=== PATIENT | female | born 1995 | race Caucasian/White ===

== ENCOUNTER 2025-03-13 05:36 | Inpatient (IN) ==
--- NOTE | 2025-03-05 08:50 | Anesthesiology Consultation ---
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 No known infectious disease contacts in past 10 days or current infectious disease symptoms. No recent travel outside the country. Patient seen by cardiology 12/19/2024 = patient seen in the cardiology clinic in the setting of incomplete cardiac views on anatomy scan. Today has been uncomplicated. She was diagnosed with gestational diabetes and takes insulin. Today's echo reviewed.Overall normal. No evidence of major congenital heart disease, myocardial dysfunction, rhythm disturbances or significant pericardial effusion. We did identify a trivial degree of physiologic fluid in the pericardial space which was not circumferential, not associated with hemodynamic changes and if infant remains well throughout the rest the can be considered a normal variant. No need to follow her based on this finding alone. I see no reason for her not to deliver at [facility] as she is planning. Pediatric cardiology team can be contacted anytime should there be an acute concern about the 's cardiovascular status. No need to follow her in cardiology clinic at this time nor do I see any need for empiric imaging or pediatric cardiology involvement for the fetus. Would recommend care with nursery and well-child check per AAP guidelines only. Recommendationsrecommend no further cardiology follow-up at this time. No changes to his or gestation plan. No empiric imaging of is recommended. echo 12/19/2024 = normal LV/RV dimensions and systolic function. Normal LA/RA dimensions. Normal valve morphology/function. Normal cardiovascular shunts, heart rate and rhythm. No vascular abnormalities. Trivial pericardial effusion versus physiologic fluid. Remainder of the study as above with noted limitations. echo cannot predict whether shunts will close spontaneously after . echo cannot rule out minor valve abnormalities, minor septation defects, partial anomalous pulmonary venous return, coarctation of the aorta, coronary artery abnormalities, other minor vascular abnormalities. History Surgery Operation Date: 03/13/25 07:30 Proposed Procedures p Section (Delivery of Baby Through Abdominal Incision) - Regina Dumas MD, FACOG Height/Weight Height: 5 ft 10 in Weight: 136.531 kg Allergies Allergy/AdvReac Type Severity Reaction Status Date / Time seasonal allergies Allergy Mild Congested Uncoded 03/05/25 08:00 Medications Home Medications Medication Instructions Recorded Confirmed Last Taken prenat.vits,bhakti,nhd-sqfd-anxzm 1 tab PO DAILY 08/17/24 03/05/25 Unknown nifedipine 30 mg tablet,extended 30 mg PO QAM 09/18/24 03/05/25 Unknown release pen needle, diabetic 32 gauge x #100 ea 11/17/24 03/02/25 Unknown " aspirin 81 mg tablet,delayed 81 mg PO QAM 03/05/25 03/05/25 Unknown release famotidine 20 mg tablet (Pepcid) 20 mg PO HS 03/05/25 03/05/25 Unknown insulin NPH isoph U-100 human 100 22 unit subcut .at bed time 03/05/25 03/05/25 Unknown unit/mL (3 mL) subcutaneous pen (Novolin N FlexPen) Past Medical History Medical History GERD (gastroesophageal reflux disease) " related" Gestational diabetes insulin History of anxiety Hx of migraines Hypertension Sinus arrhythmia no cards Past Family History Family History Family/Other Breast cancer Family/Other Breast cancer Mother Diabetes Uterine cancer Father Heart disease Other No family history of adverse response to anesthesia Denies family history of Ovarian cancer Prostate cancer Myocardial infarction Colorectal cancer Past Surgical History Surgical History H/O oral surgery Social History Smoking Status: Former smoker Smoking cigarettes per day: quit 2-3 years ago Do You Dip or Chew Tobacco: No Hx Alcohol Use: No Alcohol type: beer and wine Hx Substance Use: No substance use type: does not use
--- NOTE | 2025-03-12 20:26 | History & Physical Report ---
Date of Service March 12, 2025 Assessment & Plan (1) 38 weeks gestation of : (2) Insulin controlled gestational diabetes mellitus (GDM) during : (3) Chronic hypertension affecting : (4) Obesity affecting : (5) LGA (large for gestational age) fetus affecting management of mother: Plan Will admit pt in am for planned procedure. Advised to only use 1/2 bedtime nph today. Remaining instructions reviewed and ERAS protocol. Consent reviewed and signed. Aware that planning delivery based on EFW, can have a 15% error rate, either for bigger or smaller baby. She still desires to proceed. Ok to hold am nifedipine. Questions answered to best of my ability and to the patient's apparent satisfaction. History of Present Illness Chief Complaint: planned c/s Primary Care Provider: FOSTER Britton 29yo at 38+wks ega will present to LD for planned c/s on 03/13/25, for LGA fetus, desires primary c/s. Patient denies rom, vb. +FM. No ctx. Her is complicated by chtn and gdm requiring insulin. On her growth u/s 03/02/25, efw was >98%, ac >98% and we discussed efw at this time and extrapolating grams even if opt to do 38wk induction was >4500gm. This does come with a +/- 15% error margin. With dx of gdm on insulin and chtn offered induction at 38wks vs primary c/s. She elected latter and is ready to proceed with planned c/s tomorrow am. She is sure she wants to proceed. PNC c/b 1. GDM on insulin 2. CHTN 3. LGA on latest u/s PNL rh pos, ri, gbs neg OBH: g1 GYNH: Nl paps, no stds Allergies Allergy/AdvReac Type Severity Reaction Status Date / Time seasonal allergies Allergy Mild Congested Uncoded 03/12/25 10:07 Home Medications Medication Instructions Recorded Confirmed Type prenat.vits,bhakti,quk-cice-habgj 1 tab PO DAILY 08/17/24 03/12/25 History nifedipine 30 mg tablet,extended 30 mg PO QAM 09/18/24 03/12/25 History release pen needle, diabetic 32 gauge x #100 ea 11/17/24 03/12/25 Rx " aspirin 81 mg tablet,delayed 81 mg PO QAM 03/05/25 03/12/25 History release famotidine 20 mg tablet (Pepcid) 20 mg PO HS 03/05/25 03/12/25 History insulin NPH isoph U-100 human 100 22 unit subcut .at bed time 03/05/25 03/12/25 History unit/mL (3 mL) subcutaneous pen (Novolin N FlexPen) Patient History Medical History GERD (gastroesophageal reflux disease) " related" Gestational diabetes insulin History of anxiety Hx of migraines Hypertension Sinus arrhythmia no cards Surgical History H/O oral surgery Family History Family/Other Breast cancer Family/Other Breast cancer Mother Diabetes Uterine cancer Father Heart disease Other No family history of adverse response to anesthesia Denies family history of Ovarian cancer Prostate cancer Myocardial infarction Colorectal cancer Social History (Updated 08/17/24 @ 10:57 by Licha Wing) Smoking Status: Former smoker Tobacco Type: E-cigarettes / Vaping Cigarettes Per Day: quit 2-3 years ago; Second Hand Exposure: No; Do You Dip or Chew Tobacco: No; Hx Alcohol Use: No Hx Substance Use: No Preferred Language: Uzbek [employer] Required: No Beliefs That Will Affect Care: None marital status: Single marital status details: Tee (32) [phone] Current Living Situation: Significant Other Current Living Situation Comment: lives with fob, 3 dogs. 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 Safe at Home: Yes Assistive Devices: Contacts and Glasses Review of Systems as per Subjective / HPI Physical Exam Constitutional: WD/WN, vitals as above Respiratory: normal respiratory effort, lungs clear to auscultation Cardiovascular: Rate/Rhythm: regular rate and regular rhythm Gastrointestinal (Abdomen): soft gravid nt obese Musculoskeletal: tr edema nontender calves Neurologic: grossly normal Psychiatric: A+Ox3, euthymic affect Genitourinary: nst reactive Coding Level of Care Code None Diagnoses 38 weeks gestation of Z3A.38 Insulin controlled gestational diabetes mellitus (GDM) during O24.414 Chronic hypertension affecting O10.919 Obesity affecting O99.210 LGA (large for gestational age) fetus affecting management of mother O36.60X0
[2025-03-13] MEDS ORDERED: LACTATED RINGER'S 1,000 ML IV SCH ×2 (05:45→06:45)
[2025-03-13] MEDS: LACTATED RINGER'S 1,000 ML IV SCH ×2 (05:55→13:40)
[2025-03-13] MEDS ORDERED: ceFAZolin 3000MG 3,000 MG/72.5 ML BAG IV SCH (06:00)
[2025-03-13 06:02] LABS: Hematocrit (blood only) 35.1 % (37.0-47.0); Hemoglobin 11.6 g/dl (12.0-16.0); Immature Granulocytes # (auto) 0.10 K/uL (0.01-0.20); Immature Granulocytes % (auto) 1.1 %; Mean Corpuscular Hemoglobin 29.0 pg (25.0-34.0); Mean Corpuscular Volume 87.8 fL (80.0-100.0); Platelet Count 251 K/uL (130-400); RDW Standard Deviation 44.6 fL (36.4-46.3); Red Blood Count 4.00 M/uL (4.20-5.40); White Blood Count 9.17 K/ul (4.8-10.8)
[2025-03-13] MEDS: ACETAMINOPHEN 500 MG TAB PO SCH (06:05)
[2025-03-13] MEDS ORDERED: SODIUM CHLORIDE 0.9% 100 ML IV PRN (06:13)
[2025-03-13] MEDS ORDERED: MoRPHine SULFATE PF 1 MG/ML 10 ML AMP/VIAL ONE (06:49)
[2025-03-13] MEDS ORDERED: METOCLOPRAMIDE HCL INJ 5 MG/ML 2 ML VIAL ONE (06:51)
[2025-03-13] MEDS ORDERED: DEXAMETHASONE SOD INJ 4 MG/ML VIAL ONE (06:51)
[2025-03-13] MEDS ORDERED: OXYTOCIN 10 UNITS/ML VIAL ONE (06:51)
[2025-03-13] MEDS ORDERED: SODIUM CHLORIDE 0.9% PF INJ 10 ML VIAL ONE (06:52)
[2025-03-13] MEDS ORDERED: ONDANSETRON INJ 2 MG/ML 2 ML VIAL ONE (06:52)
[2025-03-13] MEDS ORDERED: PHENYLEPHRINE HCL 10 MG/ML VIAL ONE (06:52)
[2025-03-13] MEDS: CITRIC ACID/SODIUM CITRATE 15 ML UDC PO SCH (07:22)
[2025-03-13] MEDS: ceFAZolin 3,000 MG/72.5 ML BAG IV SCH (07:24)
--- NOTE | 2025-03-13 07:24 | History & Physical Bridge Note ---
Date of Service March 13, 2025 History & Physical Bridge Note I have examined the patient, reviewed the History & Physical and in the interval since the performance of the History & Physical I have noted the following changes of clinical significance: no changes noted
[2025-03-13] MEDS ORDERED: ONDANSETRON INJ 2 MG/ML 2 ML VIAL IV PRN (07:49)
[2025-03-13] MEDS ORDERED: NALOXONE HCL 0.08 MG in SYRINGE 1.8 ML IV PRN (07:49)
[2025-03-13] MEDS ORDERED: NALOXONE HCL 0.4 MG/1 ML VIAL/CARP IV PRN (07:49)
[2025-03-13] MEDS ORDERED: PROMETHAZINE 6.25 MG/50.25 ML BAG IV PRN (07:49)
[2025-03-13] MEDS ORDERED: NALBUPHINE HCL INJ 10 MG/ML AMP IV PRN (07:49)
[2025-03-13] MEDS ORDERED: NALOXONE HCL 1 MG in SODIUM CHLORIDE 0.9% 1,000 ML IV PRN (07:49)
[2025-03-13] MEDS ORDERED: LACTATED RINGER'S 500 ML IV PRN (07:49)
[2025-03-13] MEDS ORDERED: MoRPHine SULFATE 2 MG/ML CARP IV PRN (07:49)
[2025-03-13] MEDS ORDERED: diphenhydrAMINE 50 MG/ML VIAL IV PRN (07:49)
[2025-03-13] MEDS ORDERED: DC INTRASPINAL MORPHINE SCH (08:00)
[2025-03-13] MEDS ORDERED: NO NARCOTICS OR SEDATIVES SCH (08:00)
--- NOTE | 2025-03-13 08:31 | Operative Report ---
Post Operative Report Pre & Post Diagnosis Operation Date: 03/13/25 07:30 Pre-Op Diagnosis: 1.38 week gestation IUP 2.CHTN 3.GDM requiring insulin 4.LGA Post-Op Diagnosis: Same as preoperative I identified the patient and participated in the time-out.: Yes Procedure Operation Date: 03/13/25 07:30 Actual Procedures p Primary Low Transverse Section in LMCon 03/13/25 @0756 - Regina Dumas MD, FACOG Surgeon Regina Dumas MD, FACOG Rehabilitation Liaison [place] Quantitative Blood Loss (QBL) 524 Findings Consistent with Post-Op Diagnosis (viable male infant, apgars pending. normal uterus tubes and ovaries bilaterally) Fluids 2200 Specimens cord blood Drains grullon Anesthesia Type Spinal Complications none Disposition Accompanied Patient To Recovery: No Disposition: L&D Indications 29yo at 38+wks ega presents to for planned c/s for LGA. See H&P for more details. Description of Procedure The patient was taken to the operating room and identified. After adequate anesthesia was obtained, she was placed in the supine position with a leftward tilt on the operating table and prepped and draped in the usual sterile fashion. A grullon catheter had already been placed. The knife was used to create a Pfannensteil skin incision that was carried down to the underlying layer of fascia. The fascia was nicked in the midline and this opening was extended laterally using Leach scissors. Jaylen clamps were placed on the superior and inferior aspect of the fascial incision tenting it upward and the underlying rectus muscles were dissected off the overlying fascia both sharply and bluntly using Leach scissors. The rectus muscles were bluntly in the midline. The peritoneal cavity was bluntly entered into. This opening was stretched. The bladder blade was placed. The vesicouterine peritoneum was elevated and opened up into and the bladder flap was created digitally and bladder blade was replaced. The knife was used to create a hysterotomy and this opening was stretched. The operators hand was placed through the hysterotomy and the bladder blade was removed. The head was elevated and flexed using vacuum and one pull and with fundal pressure the head was delivered. The shoulders and body were rapidly delivered. The cord was clamped and cut and the 's mouth and nares were bulb suction. The infant was handed off to the awaiting pediatricians. Cord blood was obtained. The placenta was manually expressed. The uterus was exteriorized and cleared of all clots and debris. Dilute IV Pitocin was begun. The uterine tone was improving. The hysterotomy was closed in a running interlocking fashion using 0 Vicryl followed by a second imbricating layer of 0 Vicryl. The hysterotomy was hemostatic. The pelvis was suctioned. The uterus was returned to the abdomen. The gutters were cleared of all clots and debris. The hysterotomy was reinspected and noted to be hemostatic. The fascia was then closed in running fashion using 0 Vicryl. The subcutaneous fat was copiously irrigated and reapproximated using 2-0 chromic. The skin was closed in a subcuticular fashion using 4-0 monocryl. At this point the procedure was terminated. The patient was transferred to the recovery room in stable condition. All sponge, lap and needle counts are correct x2. I attest to the content of the Intraoperative Record and any orders documented therein. Any exceptions are noted below. OB Procedure Charges 00387
[2025-03-13] MEDS ORDERED: SENNA 8.6 MG TAB PO PRN (08:53)
[2025-03-13] MEDS ORDERED: MAGNESIUM HYDROXIDE SUSP 30 ML UDC PO PRN (08:53)
[2025-03-13] MEDS ORDERED: BENZOCAINE 20% SPRY 85 APPLN/85 GM CAN EXT PRN (08:53)
[2025-03-13] MEDS ORDERED: CALCIUM CARBONATE 500 MG CHEWABLE TAB PO PRN (08:53)
[2025-03-13] MEDS ORDERED: HYDROCORTISONE ACETATE 25 MG SUPP PR PRN (08:53)
[2025-03-13] MEDS: MoRPHine SULFATE PF 1 MG/ML 10 ML AMP/VIAL INT SPINAL ONE (08:55)
[2025-03-13] MEDS: KETOROLAC 30 MG/ML VIAL IV SCH (09:12)
[2025-03-13] MEDS: DIPHTHER/TETAN/PERTUS Vaccine (Tdap, Adol/Adult) 0.5mL IM ONE (09:13)
[2025-03-13] MEDS: SIMETHICONE 80 MG CHEW PO SCH (12:33)
[2025-03-13] MEDS: OXYTOCIN 20 UNITS/LR 1,002 ML IV SCH (13:41)
[2025-03-13] MEDS: ACETAMINOPHEN 325 MG TAB PO SCH (15:50)
[2025-03-13] MEDS: DOCUSATE SODIUM 100 MG CAP PO SCH (21:22)
[2025-03-13] MEDS: FAMOTIDINE 20 MG TAB PO SCH (21:22)
[2025-03-14] MEDS ORDERED: diphenhydrAMINE 50 MG/ML VIAL IV PRN (01:50)
[2025-03-14] MEDS ORDERED: PROMETHAZINE 12.5 MG/50.5 ML BAG IV PRN (01:50)
[2025-03-14] MEDS ORDERED: HYDROmorphone INJ 0.5 MG/0.5 ML SYR IV PRN (01:50)
[2025-03-14] MEDS ORDERED: ONDANSETRON INJ 2 MG/ML 2 ML VIAL IV PRN (01:50)
[2025-03-14] MEDS ORDERED: ZOLPIDEM TARTRATE 5 MG TAB PO PRN (01:50)
[2025-03-14] MEDS ORDERED: diphenhydrAMINE Capsule 25 MG CAP PO PRN (01:50)
[2025-03-14 06:11] LABS: Hematocrit (blood only) 31.3 % (37.0-47.0); Hemoglobin 10.4 g/dl (12.0-16.0); Immature Granulocytes # (auto) 0.10 K/uL (0.01-0.20); Immature Granulocytes % (auto) 1.0 %; Mean Corpuscular Hemoglobin 29.1 pg (25.0-34.0); Mean Corpuscular Volume 87.4 fL (80.0-100.0); Platelet Count 216 K/uL (130-400); RDW Standard Deviation 43.8 fL (36.4-46.3); Red Blood Count 3.58 M/uL (4.20-5.40); White Blood Count 10.05 K/ul (4.8-10.8)
--- NOTE | 2025-03-14 07:13 | Obstetrical Progress Note ---
Date of Service March 14, 2025 Assessment & Plan (1) examination following delivery: Plan: 29 y/o post- day 1 s/p . was complicated by CHTN and GDM. Fells well today. Vital signs stable Continue post- care Encourage ambulation and Pain controlled with ibuprofen Hgb stable Anticipate discharge home tomorrow, follow up with Dr. Dumas in 6 weeks. Admission and Anticipated Discharge Date Admission Date: March 13, 2025 Supervising Physician Co-Signing Physician Notes Resident Physician Supervision Note: I was present with Dr. Hayden during the history and exam. I discussed the case with the resident and agree with the findings and plan as documented in the note. Any exceptions or clarifications are listed here: stable doing well. eating, voiding, ambulating. bleeding dec, pain well controlled with meds. bottle feeding. exam. abd soft obese nt, ff 2 down. incision c/d/i. ext nt calves. tr edema. POD #1 s/p c/s doing well. no concerns. routine care. hgb noted. bottle, rhpos, ri. Documented By: Regina Dumas MD, FACOG Subjective Ethel Neal is a 29 y/o post- day 1 s/p . was complicated by CHTN and GDM Rh(+), rubella immune, GBS (-) Ambulation: ambulating normally Voiding: no voiding problems Passing Gas:: Yes Diet Tolerance:: regular diet Lochia:: Small Feeding Type:: bottle feeding Current Pain Level: Resting comfortably this AM in NAD. Denies GOMEZ, CP, SOB, N/V/D, LE pain/swelling. Review of Systems Review of Systems: All systems reviewed & are unremarkable except as noted in HPI & below Physical Exam Physical Exam: General: patient resting comfortably, NAD, non-toxic in appearance, AA&O x 4, answers questions appropriately. Skin: warm, dry, intact HEENT: NC/AT, anicteric sclera, conjunctiva without injection, moist mucus membranes. Heart: +S1/S2, regular, no m/r/g Lungs: equal air entry bilaterally, no rales/rhonchi/wheezes Abd: +BS, soft, NT/ND, uterine fundus firm at umbilicus, caesarean incision C/D/I. Ext: warm, no clubbing/cyanosis or edema, Sandra's neg. Neuro: nonfocal, patient AA&O x 4, speech intact, no facial droop, moving all extremities on command. Constitutional: WD/WN, vitals as above Results & Data Vital Signs (Past 12 Hours) Vital Signs Temp Pulse Resp BP Pulse Ox O2 Del Method 03/14/25 03:00 36.4 C L 56 L 17 115/71 97 Room Air 03/14/25 00:30 16 97 03/14/25 00:30 36.8 C 90 16 112/70 97 Room Air 03/13/25 23:35 17 98 03/13/25 22:44 16 97 03/13/25 22:20 16 97 03/13/25 21:15 18 97 03/13/25 19:30 17 98 03/13/25 19:30 Room Air 03/13/25 19:30 36.8 C 71 17 119/70 98 Room Air
[2025-03-14] MEDS: SODIUM CHLORIDE 0.9% 1,000 ML IV SCH (07:27)
[2025-03-14] MEDS: PRENATAL VITAMIN 1 TAB PO SCH (08:38)
[2025-03-14] MEDS: FERROUS SULFATE 325 MG TAB PO SCH (08:38)
[2025-03-14] MEDS: IBUPROFEN 600 MG TAB PO SCH (08:38)
[2025-03-14] MEDS ORDERED: KETOROLAC 30 MG/ML VIAL IV PRN (08:45)
[2025-03-14] MEDS: NIFEdipine EXTENDED REL 30 MG TABCR PO SCH (08:46)
[2025-03-14 13:00] VITALS: RESP 18; O2SAT 98
[2025-03-15 06:06] LABS: Hematocrit (blood only) 32.5 % (37.0-47.0); Hemoglobin 10.5 g/dl (12.0-16.0)
--- NOTE | 2025-03-15 06:15 | Obstetrical Progress Note ---
Date of Service March 15, 2025 Assessment & Plan (1) examination following delivery: Plan: 29 y/o post- day 2 s/p . was complicated by CHTN and GDM. Feels well today. Vital signs stable Continue post- care Encourage ambulation and Pain controlled with ibuprofen Hgb stable Discharge home today, follow up with Dr. Dumas in 6 weeks. Admission and Anticipated Discharge Date Admission Date: March 13, 2025 Anticipated date of discharge: 03/15/25 Supervising Physician Co-Signing Physician Notes Resident Physician Supervision Note: I interviewed and examined the patient. Discussed with Dr. Hayden and agree with findings and plan as documented in the note. Any exceptions or clarifications are listed here: POD#2 doing well. DC home, Rx #10 tabs oxycodone to pharmacy. 6w followup. Documented By: Serena Hector, DO Subjective Ethel Neal is a 29 y/o post- day 2 s/p . was complicated by CHTN and GDM Rh(+), rubella immune, GBS (-) Ambulation: ambulating normally Voiding: no voiding problems Passing Gas:: Yes Diet Tolerance:: regular diet Lochia:: Small Feeding Type:: bottle feeding Current Pain Level: Resting comfortably this AM in NAD. Denies GOMEZ, CP, SOB, N/V/D, LE pain/swelling. Review of Systems Review of Systems: All systems reviewed & are unremarkable except as noted in HPI & below Physical Exam Physical Exam: General: patient resting comfortably, NAD, non-toxic in appearance, AA&O x 4, answers questions appropriately. Skin: warm, dry, intact HEENT: NC/AT, anicteric sclera, conjunctiva without injection, moist mucus membranes. Heart: +S1/S2, regular, no m/r/g Lungs: equal air entry bilaterally, no rales/rhonchi/wheezes Abd: +BS, soft, NT/ND, uterine fundus firm at umbilicus, caesarean incision C/D/I. Ext: warm, no clubbing/cyanosis or edema, Sandra's neg. Neuro: nonfocal, patient AA&O x 4, speech intact, no facial droop, moving all extremities on command. Constitutional: WD/WN, vitals as above Results & Data Vital Signs (Past 12 Hours) Vital Signs Temp Pulse Resp BP Pulse Ox O2 Del Method 03/15/25 03:02 36.6 C 59 L 18 114/75 98 Room Air 03/14/25 19:28 36.7 C 62 18 126/76 98 Room Air
[2025-03-15] MEDS ORDERED: IBUPROFEN 600 MG TAB PO PRN (08:45)
[2025-03-15 10:49] VITALS: BP 108/71; PULSE 76; TEMP 97.7
[2025-03-15] MEDS ORDERED: ACETAMINOPHEN 325 MG TAB PO PRN (14:45)
== END 2025-03-15 13:25 | disposition home or self-care (01) | DRG 787 ==
LOC: 4S1 05:36 → EDSTATUS 07:30 → 4E2 13:42